=== PATIENT | female | born 1945 | race Caucasian/White ===

== ENCOUNTER 2016-12-10 13:42 | Inpatient (IN) | payer MEDICARE, BC ==
[~2016-12-10] VITALS: Ht 154.9 cm; Wt 104.5 kg
[2016-12-11] MEDS ORDERED: LATA0.002 EACH EYE (09:00)
[2016-12-11] MEDS ORDERED: FERR1TAB6 PO (09:00)
[2016-12-11] MEDS ORDERED: MULTTAB67 PO (09:00)
[2016-12-11] MEDS ORDERED: LOSA100T PO (09:00)
--- NOTE | 2016-12-22 05:18 | MH ---
cc: TRACE ORELLANA M.D. DATE OF ADMISSION: 12/22/2016 ADMISSION DIAGNOSIS Osteoarthritis left hip. HISTORY This is a 71-year female with significant left hip pain. Investigative studies show evidence of extensive arthritis of the left hip. Despite conservative care the patient is painful and symptomatic. She presents for surgical treatment. PAST MEDICAL HISTORY, SOCIAL HISTORY, FAMILY HISTORY, REVIEW OF SYSTEMS See attached notes. PHYSICAL EXAMINATION GENERAL: A 71-year-old female in moderate distress with her left hip. HEENT: Normocephalic, atraumatic. Pupils equal, round, reactive to light and accommodation. Extraocular motions intact. NECK: Supple. CHEST: Clear. HEART: Regular rate and rhythm. ABDOMEN: Soft, nontender with normoactive bowel sounds. MUSCULOSKELETAL EXAMINATION: Pain with range of motion of the left hip, restricted motion, mild flexion contracture. NEUROLOGIC AND VASCULAR EXAMINATION: Within normal limits. IMPRESSION Osteoarthritis left hip. PLAN Left total hip replacement arthroplasty. CONSENT The risks with surgery including infection, bleeding, loss of motion, continued pain, need for further surgery, neurologic and vascular injury. The patient understands these issues and wishes to press on with surgery as outlined above. MD YAKOV Pulido/RACHEAL /9:58 PM /5:12 AM
[2016-12-22] MEDS: POVIDONE IODINE 7.5% SCRUB 118 ML BOTTLE TOP SCH (06:00)
[2016-12-22] MEDS ORDERED: ceFAZolin 2 GM PREMIX 50 ML IV SCH (06:00)
[2016-12-22] MEDS ORDERED: VANCOMYCIN 1000 MG/NS 250 ML (for <70 kg) IV SCH ×2 (06:00)
[2016-12-22 06:08] VITALS: BP 166/90; PULSE 100; RESP 18; TEMP 98.1; O2SAT 97
[2016-12-22] MEDS ORDERED: CHLORHEXIDINE GLUCONATE 2 % 1 PACK (2 CLOTHS) TOP ONE (06:15)
[2016-12-22] MEDS ORDERED: POVIDONE IODINE 5% (ANTISEPSIS KIT) 4 APPLICATIONS TOPICAL ONE (06:15)
[2016-12-22] MEDS ORDERED: GENTAMICIN SULFATE 80 MG/2 ML VIAL ONE (06:18)
[2016-12-22] MEDS ORDERED: ACETAMINOPHEN 1000 MG/100 ML VIAL IV ONE (07:21)
[2016-12-22] MEDS ORDERED: ONDANSETRON HCL 4 MG/2 ML VIAL ONE (07:22)
[2016-12-22] MEDS ORDERED: MIDAZOLAM HCL 2 MG/2 ML VIAL ONE (07:22)
[2016-12-22] MEDS ORDERED: FAMOTIDINE 20 MG/2 ML VIAL ONE (07:22)
[2016-12-22] MEDS ORDERED: fentaNYL CITRATE 250 MCG/5 ML AMP ONE ×2 (07:22→10:30)
[2016-12-22] MEDS: SODIUM CHLORIDE 0.9% IV SCH ×2 (07:30→08:36)
[2016-12-22] MEDS: EXPAREL PERI-ARTICULAR INJECTION (TOTAL VOL. 60 ML) P-ARTICULR SCH ×4 (07:30→08:39)
[2016-12-22] MEDS: TRANEXAMIC ACID IV SCH ×2 (07:30→08:36)
[2016-12-22] MEDS ORDERED: MISCELLANEOUS NURSING INFORMATION XX PRN (09:45)
[2016-12-22] MEDS ORDERED: NALOXONE HCL 0.4 MG/ML AMP IV PRN (09:45)
[2016-12-22] MEDS ORDERED: MORPHINE SULFATE 30 MG/30 ML PCA IV SCH (09:45)
[2016-12-22] MEDS ORDERED: ACETAMINOPHEN/HYDROcodone 325 MG/7.5 MG TAB PO PRN (09:45)
[2016-12-22] MEDS ORDERED: SODIUM CHLORIDE 0.9% FLUSH 5 ML FLUSH IVF PRN (09:45)
[2016-12-22] MEDS ORDERED: MORPHINE SULFATE 8 MG/ML INJ IM PRN (09:45)
[2016-12-22] MEDS ORDERED: HYDR-3580 PO (09:48)
[2016-12-22] MEDS ORDERED: XARE10TA PO (09:48)
[2016-12-22] MEDS ORDERED: Post-op Orders (for Pharmacy) MISC XX ONE (10:00)
[2016-12-22] MEDS ORDERED: ONDANSETRON HCL 4 MG/2 ML VIAL IV PUSH ONE (10:08)
[2016-12-22] MEDS ORDERED: *ONDANSETRON 4 MG VIAL PERIprocedural Use ONLY ONE (10:08)
[2016-12-22] MEDS ORDERED: PROMETHAZINE HCL 25 MG SUPP RECTAL ONE (10:09)
[2016-12-22] MEDS ORDERED: PROMETHAZINE HCL 25 MG SUPP ONE (10:09)
--- NOTE | 2016-12-22 10:16 | PD.OP ---
cc: Adriel Chappell MD Operative Report Date of Surgery: Dec 22, 2016 Preoperative Diagnosis: Osteoarthritis left hip, severe Postoperative Diagnosis: Same Procedure: Left total hip replacement arthroplasty, direct anterior exposure Anesthesia: Gen. Surgeon: Adriel Chappell Piece Maker(s): ROSALBA Kim Operation and Findings: EBL: 250 cc INDICATION: This patient presents with significant hip pain related to severe osteoarthritis of the left hip. Despite extensive conservative care this patient continues to be painful and now presents for surgical treatment. NOTE: Arleth Kim PA-C was present for the entire surgical procedure as my neurosurgical physician assistant. In my medical opinion her skill and care was necessary for the proper management of this patient. COMPONENTS: COMPANY: [employer] CUP: [place], 52 mm, 100 series, gription surface LINER: Altrx 36 mm, neutral STEM: [place], size 9, high offset, hydroxyapatite-coated HEAD: 36 mm, 12/14 taper PROCEDURE: This patient was brought to the operating room and anesthetized in the supine position and positioned on the fracture table with both legs held extended. The left hip and leg was scrubbed with alcohol followed by Hibiclens followed by ChloraPrep and draped sterilely. Antibiotics were given within routine time window and a timeout was done. A 4 inch incision was made starting 2 cm distal and 2 cm lateral to the anterior superior iliac spine. The fascia andrea was opened longitudinally. The interval between the fascia andrea and the rectus was opened down to the capsule of the hip joint. Retractors were positioned allowing good visualization of the capsule. This was opened longitudinally and flaps were created. Stay sutures were utilized. Exposure was excellent. The neck was cut at the proper location using fluoroscopy as a guide. The head was removed. Deep retractors were positioned allowing good visualization of the acetabulum. Acetabulum was deepened down to the floor starting with a proper size reamer and reaming up to 51 mm. A trial was utilized. Fluoroscopy was used to check position and confirmed satisfactory alignment. The rim was reamed with a 52 mm reamer and the final cup was positioned in approximately 20 of anteversion and 40-45 of abduction. Position was satisfactory. A single hole eliminator was positioned followed by the final liner. The lifting hook was utilized. The leg was dropped to the floor, maximally externally rotated and brought across the midline. Retractors were positioned. A box osteotome was utilized followed by progressive broaching to the proper stem size. Trial reduction showed excellent alignment and fit. With 60 of external rotation the leg was dropped to the floor without evidence of anterior subluxation. The wound was irrigated. The final stem was inserted and was found to be very stable. The final reduction using the final head. Stability was as previously noted. Intraoperative x-rays were taken. The wound was irrigated copiously. Hemostasis was controlled. Local anesthesia was utilized. The capsule was repaired with #2 Tycron sutures. The fascia andrea was repaired with running 0 PDS on a loop. Subcutaneous tissue was approximated with 2-0 Vicryl and skin with running intradermal 3-0 Vicryl followed by Steri-Strips. A sterile dressing was applied. The patient was awakened and taken to the recovery room in satisfactory condition. FINDINGS: There was evidence of severe osteoarthritis of the left hip. Circumferential osteophytes were noted which were removed. The final solution was very satisfactory. No complication was appreciated. Adriel Chappell MD Dec 22, 2016 10:16
[2016-12-22] MEDS ORDERED: MORPHINE SULFATE 4 MG/ML INJ ONE (10:30)
[2016-12-22] MEDS ORDERED: DO NOT ADM ANY ANTICOAGULANT DRUGS XX PRN (10:30)
[2016-12-22] MEDS: LACTATED RINGER'S 1000 ML INJ 1,000 ML IV SCH ×2 (10:45→23:09)
[2016-12-22 11:35] VITALS: BP 147/71; PULSE 71; RESP 18; TEMP 95.7; O2SAT 100
[2016-12-22] MEDS ORDERED: LACTATED RINGER'S 1000 ML INJ 1,000 ML IV ONE (12:00)
[2016-12-22] MEDS ORDERED: MISCELLANEOUS PHARMACY INFORMATION XX ONE (12:00)
[2016-12-22] MEDS ORDERED: NEOSTIGMINE 3 MG/3 ML SYR IV ONE (12:00)
[2016-12-22] MEDS ORDERED: PROPOFOL 200 MG/20 ML AMP IV ONE (12:00)
[2016-12-22] MEDS ORDERED: ePHEDrine/NS 25 MG/5 ML SYR IV ONE (12:00)
[2016-12-22] MEDS ORDERED: PHENYLEPH/NS 1000 MCG/10 ML SYR IV ONE (12:00)
[2016-12-22] MEDS: PCA - TOTAL MG MORPHINE DELIVERED PER SHIFT SCH ×2 (13:19→22:00)
--- NOTE | 2016-12-22 14:44 | RADRPT ---
EXAM DATE/TIME: 12/22/2016 08:12 [facility] COMPARISON: No previous studies available for comparison. INDICATIONS : Left anterior hip replacement. MEDICAL HISTORY : Hypertension. Osteoarthritis. SURGICAL HISTORY : Appendectomy. ENCOUNTER: Initial ACUITY: 1 day PAIN SCORE: Non-responsive. LOCATION: Left hip. FINDINGS: A left hip replacement is noted. The prosthesis appears to be in good position. There is no acute f racture or dislocation. CONCLUSION: 1. Left hip replacement with prosthesis in good position. 2. No acute fracture or dislocation. Scotty Salinas MD on December 22, 2016 at 14:40 Board Certified Radiologist. This report was verified electronically.
[2016-12-22 16:00] VITALS: BP 124/55; PULSE 80; RESP 18; TEMP 95.8; O2SAT 100
[2016-12-22 17:14] VITALS: O2SAT 99
[2016-12-22] MEDS: MAGNESIUM HYDROXIDE SUSP 30 ML CUP PO SCH (19:55)
[2016-12-22] MEDS: SODIUM CHLORIDE 0.9% FLUSH 5 ML FLUSH IVF SCH (19:55)
[2016-12-22] MEDS: SENNOSIDES 8.6 MG TAB PO SCH (19:55)
[2016-12-22] MEDS: LATANOPROST 0.005% OPHT SOLN 2.5 ML BTL EACH EYE SCH (19:58)
[2016-12-22 20:00] VITALS: BP 121/69; PULSE 88; RESP 16; TEMP 97.4; O2SAT 94; O2SAT 97
[2016-12-23] VITALS (7 sets, daily range): BP systolic 123–139; BP diastolic 61–69; PULSE 90–106; RESP 16–18; TEMP 97.6–99; O2SAT 93–98
[2016-12-23] MEDS: POVIDONE IODINE 7.5% SCRUB 118 ML BOTTLE TOP SCH (02:27)
[2016-12-23] MEDS: PCA - TOTAL MG MORPHINE DELIVERED PER SHIFT SCH (05:52)
[2016-12-23 06:17] LABS: HEMATOCRIT 31.9 % (35.0-46.0); REVIEW FLAG FINAL
[2016-12-23] MEDS: RIVAROXABAN 10 MG TAB PO SCH (08:44)
[2016-12-23] MEDS: LOSARTAN 50 MG TAB PO SCH (08:44)
[2016-12-23] MEDS: MAGNESIUM HYDROXIDE SUSP 30 ML CUP PO SCH ×2 (08:44→20:32)
[2016-12-23] MEDS: SODIUM CHLORIDE 0.9% FLUSH 5 ML FLUSH IVF SCH ×2 (08:46→20:32)
[2016-12-23] MEDS: ACETAMINOPHEN/HYDROcodone 325 MG/7.5 MG TAB PO PRN ×2 (11:15→16:07)
[2016-12-23] MEDS: LACTATED RINGER'S 1000 ML INJ 1,000 ML IV SCH ×2 (12:00→20:32)
--- NOTE | 2016-12-23 13:12 | HHI.FF ---
Face to Face Verification Diagnosis: (1) Left hip pain (2) Osteoarthritis of left hip Physical Therapy Gait training, Safety evaluation, Transfer training, bed to chair Hip: Protocol: Left, Progress to weight bearing Left LE Weight Bearing: WB as tolerated Additional Instructions PT - 4-5 days/wk for 2 weeks. WBAT LLE. Terry anterior precautions. Gait / transfers. Nursing RN Days per Week: 3 x Week(s): 1 Dressing Changes: Do not change dressing Additional Instructions Vitals assessment, dressing assessment - do not change unless saturated. I have seen patient Gina Clarke on 12/23/16. My clinical findings support the need for the requested home health care services because: Limited ability to care for self High risk of falls I certify that my clinical findings support that this patient is homebound because: Post-op weakness Unsteady gait/balance Tracey Murillo Dec 23, 2016 13:12
--- NOTE | 2016-12-23 13:15 | PD.ORT.PN ---
Subjective Subjective Remarks Moderate left hip pain but stable. Did very well w PT this morning. Pain well controlled. Appetite increasing. Urinating well. No other concerns. No CP or SOB Objective Vitals Vital Signs Date Time Temp Pulse Resp B/P Pulse Ox O2 Delivery O2 Flow Rate FiO2 12/23/16 09:37 95 21 12/23/16 08:00 98.7 90 18 137/61 98 12/23/16 04:00 98.6 91 16 134/67 95 12/23/16 00:00 97.6 91 17 127/69 98 12/22/16 20:00 97.4 88 16 121/69 94 12/22/16 20:00 97 Nasal Cannula 3.00 12/22/16 17:14 99 Nasal Cannula 3.00 12/22/16 16:00 95.8 80 18 124/55 100 12/22/16 13:19 17 I/O 12/22/16 12/22/16 12/22/16 12/23/16 12/23/16 12/23/16 07:00 15:00 23:00 07:00 15:00 23:00 Intake Total 1676 ml 486 ml 1102 ml Output Total 850 ml 500 ml 300 ml Balance 826 ml -14 ml 802 ml Intake Oral 120 ml 240 ml 240 ml IV Total 356 ml 246 ml 862 ml Other 1200 ml Output Urine Total 550 ml 500 ml 300 ml Estimated Blood Loss 300 ml # Bowel Movements 1 0 0 Result Diagram: 12/23/16 0540 Objective Remarks Sitting up in chair, eating lunch NAD VSS LLE Dressing c/d/i, mild SS drainage, mild swelling, no erythema neg homans, thigh and calf supple +motor at, +sens, +nvi Assessment & Plan Ortho Post Op Day #: 1 Problem List: Assessment and Plan pod#1 s/p L PAT, 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 Hold dressing changes unless saturated. Xarelto 10mg qd. PT - WBAT LLE. Anterior pat precautions. D/C planning, home w [facility] tomorrow. F2F written. Tracey Murillo Dec 23, 2016 13:15
[2016-12-23] MEDS ORDERED: WALKER WHEELS/F1 MIS (13:16)
[2016-12-23] MEDS ORDERED: MISC-163 (13:16)
[2016-12-23] MEDS: SENNOSIDES 8.6 MG TAB PO SCH (20:32)
[2016-12-23] MEDS: LATANOPROST 0.005% OPHT SOLN 2.5 ML BTL EACH EYE SCH (20:33)
[2016-12-24] VITALS: BP 150/67; PULSE 101; RESP 16; TEMP 99.1; O2SAT 94
[2016-12-24] MEDS: POVIDONE IODINE 7.5% SCRUB 118 ML BOTTLE TOP SCH (02:57)
[2016-12-24] MEDS: ACETAMINOPHEN/HYDROcodone 325 MG/7.5 MG TAB PO PRN ×2 (04:11→10:10)
[2016-12-24 08:00] VITALS: BP 132/65; PULSE 98; RESP 18; TEMP 96.7; O2SAT 97
[2016-12-24] MEDS: MAGNESIUM HYDROXIDE SUSP 30 ML CUP PO SCH (09:00)
[2016-12-24] MEDS: SODIUM CHLORIDE 0.9% FLUSH 5 ML FLUSH IVF SCH (09:00)
[2016-12-24] MEDS: LOSARTAN 50 MG TAB PO SCH (10:09)
[2016-12-24] MEDS: RIVAROXABAN 10 MG TAB PO SCH (10:09)
--- NOTE | 2016-12-24 10:12 | HHI.DCPOC ---
Discharge Care Plan Diagnosis: (1) Left hip pain (2) Osteoarthritis of left hip Your Health Problems Are: Incision/Drains Goals to Promote Your Health * To prevent worsening of your condition and complications * To maintain your health at the optimal level Directions to Meet Your Goals Take your medications as prescribed Follow your dietary instruction Follow activity as directed Keep your appointments as scheduled Take your immunizations and boosters as scheduled If your symptoms worsen call your PCP, if no PCP go to Urgent Care Center or Emergency Room Smoking is Dangerous to Your Health. Avoid second hand smoke Call the 24-hour hour crisis hotline for domestic abuse at Tracey Murillo Dec 24, 2016 10:12
--- NOTE | 2016-12-24 10:16 | HHI.DS ---
Discharge Summary Admission Date Dec 22, 2016 at 05:28 Discharge Date: Dec 24, 2016 Admitting Diagnosis see below Diagnosis: (1) Left hip pain Diagnosis: Principal (2) Osteoarthritis of left hip Diagnosis: Principal Procedures Left total hip arthroplasty, Direct Anterior Brief History This is a 71 year old female patient with a long history of left hip pain. When her function began to decline she sought out medical treatment. Imaging studies were performed and she was found to have moderate to significant arthritis of her left hip. Conservative care was pursued for a period of time but unfortunately she continued to decline. Surgical treatment was eventually recommended and she elected to move forward with left total hip arthroplasty. CBC/BMP: 12/23/16 0540 Significant Findings Laboratory Tests Test 12/23/16 05:40 Hemoglobin 10.7 GM/DL (11.6-15.3) Hematocrit 31.9 % (35.0-46.0) PE at Discharge Sitting up in chair, eating lunch NAD VSS LLE Dressing c/d/i, mild SS drainage, mild swelling, no erythema neg homans, thigh and calf supple +motor at, +sens, +nvi Hospital Course Surgical treatment was performed on the day of admission without complication. She recovered well in PACU and was transferred to the orthopaedic floor. Pain was controlled with IV and oral medications. DVT prophylaxis was initiated pod# 1. She was compliant with physical therapy and all precautions. After 2 days she was found to be stable and discharged home with home health care and instructed to continue therapy and to pursue a high fiber diet for 3-5 days postop. Pt Condition on Discharge: Stable Discharge Disposition: Disch w/ Home Health Serv Discharge Instructions Diet Instructions: As Tolerated, No Restrictions, High Fiber Diet Activities You Can Perform: Weight Bearing as Eddie Activities to Avoid: Strenuous Activity Additional Activity Instruc.: Left PAT, anterior protocol New Medications: 3-in-1 Bedside Toilet (3-in-1 Bedside Toilet) 1 Mis Mis 1 EA .ROUTE DIRECTED #1 EA Walker with Front Wheels (Walker with Front Wheels) 1 Mis Mis 1 EA .ROUTE DIRECTED #1 Ref 0 EA Hydrocodone-Acetaminophen (Hydrocodone-Acetaminophen) 7.5-325 mg Tab 1 TAB PO Q4H PRN PAIN LESS THAN 5 ON SCALE #50 TAB Rivaroxaban (Xarelto) 10 Mg Tab 10 MG PO Q24H Prevent Blood Clot #25 TAB Continued Medications: Ferrous Gluconate (Ferate) 27 Mg Tab 1 TAB PO DAILY Latanoprost Opth Drops (Latanoprost Opth Drops) 0.005% Drops 1 DROP EACH EYE HS Refrigerate until opened. Glaucoma #2.5 Ref 0 ML Losartan (Losartan) 100 Mg Tab 100 MG PO DAILY Blood Pressure Management #30 Ref 0 TAB Multiple Vitamin (Multiple Vitamin) 1 Tab 1 TAB PO DAILY Nutritional Supplement Ref 0 TAB Tracey Murillo Dec 24, 2016 10:16
[2016-12-24] MEDS: LACTATED RINGER'S 1000 ML INJ 1,000 ML IV SCH (13:00)
== END 2016-12-24 15:37 | disposition home or self-care (01) | DRG 470 ==
LOC: HSDI 12-22 05:28 → EDUNIT# 12-22 07:30 → N06B 12-22 11:28
PROVIDERS: ADMIT Orthopaedic Surgery Orthopaedic Surgery of the Spine; ATTEND Orthopaedic Surgery Orthopaedic Surgery of the Spine
PROC: 0SRB02A Replacement of Left Hip Joint with Metal on Polyethylene Synthetic Substitute, Uncemented, Open Approach (ICD-10-PCS; principal; 2016-12-22 07:23)
DX: M16.12 Unilateral primary osteoarthritis, left hip (principal); Z68.41 Body mass index [BMI] 40.0-44.9, adult; I10 Essential (primary) hypertension; H40.9 Unspecified glaucoma; E66.9 Obesity, unspecified
CPT/HCPCS: 73502; 76000; 85014; 85018; 86850; 86890; 86900; 86901; 86920; 94150; C1776; C9290; J0131; J0690; J1580; J2250; J2270; J2370; J2405; J2710; J3010; J3370; J7050; J7120

== ENCOUNTER → 2016-12-11 | Outpatient (CLI) | payer MEDICARE, BC ==
[~2016-12-11] MED LIST: FERR1TAB6 PO; HYDR-3580 PO; LATA0.002 EACH EYE; LOSA100T PO; MISC-163; MULTTAB67 PO; WALKER WHEELS/F1 MIS; XARE10TA PO
[2016-12-11 09:52] LABS: AUTOMATED NEUTROPHIL # 4.3 TH/MM3 (1.8-7.7); BASOPHIL % 0.6 % (0.0-2.0); EOSINOPHIL # 0.1 TH/MM3 (0-0.4); EOSINOPHIL % 1.4 % (0.0-4.0); HEMATOCRIT 40.5 % (35.0-46.0); HEMO FLAGS DIFF FINAL; LYMPH % 35.2 % (9.0-44.0); LYMPHOCYTE # 2.6 TH/MM3 (1.0-4.8); MEAN CELL VOLUME 86.7 FL (80.0-100.0); MEAN CORPUSCULAR HEMOGLOBIN 28.9 PG (27.0-34.0); MEAN CORPUSCULAR HGB CONC 33.4 % (32.0-36.0); MONO % 5.5 % (0.0-8.0); NEUT % 57.3 % (16.0-70.0); PLATELET COUNT 278 TH/MM3 (150-450); RED BLOOD COUNT 4.68 MIL/MM3 (4.00-5.30); RED CELL DISTRIBUTION WIDTH 14.4 % (11.6-17.2); WHITE BLOOD COUNT 7.4 TH/MM3 (4.0-11.0)
[2016-12-11 09:58] LABS: BLOOD, URINE NEG (NEG); GLUCOSE,URINE NEG (NEG); KETONE, URINE NEG (NEG); NITRITE,URINE NEG (NEG); PH, URINE 5.5 (5.0-8.5); SQUAMOUS EPITHELIAL CELL URINE <1 /hpf (0-5); URINE COLOR YELLOW (YELLW/STRAW)
[2016-12-11 10:02] LABS: APTT (PATIENT) 24.5 SEC (24.3-30.1); INTERNATIONAL NORMALIZED RATIO 0.9 RATIO; PROTHROMBIN TIME - PATIENT 10.4 SEC (9.8-11.6)
[2016-12-11 10:12] LABS: BICARBONATE 29.7 MEQ/L (21.0-32.0); POTASSIUM 4.1 MEQ/L (3.5-5.1)
[2016-12-11 10:17] LABS: COMMENT (UR) CULT NOT INDICATED; CULTURE IF INDICATED CULT NOT INDICATED
== END ==
LOC: CPRE 08:29
PROVIDERS: ATTEND Orthopaedic Surgery Orthopaedic Surgery of the Spine
DX: Z01.812 Encounter for preprocedural laboratory examination (principal); M16.12 Unilateral primary osteoarthritis, left hip; Z79.01 Long term (current) use of anticoagulants
CPT/HCPCS: 36415; 80048; 81001; 85025; 85610; 85730